=== PATIENT | male | born 1975 | race Two or more races ===

== ENCOUNTER → 2021-04-19 13:58 | Outpatient (CLI) | payer MEDICAID, SELFPAY ==
[2021-04-19 14:39] LABS: Basophils % 0.5 % (0.1-2.0); Eosinophils % 0.7 % (0.1-12.0); Hematocrit 46.9 % (42.0-52.0); Hemoglobin 14.8 g/dL (14.1-18.0); Mean Corpuscular HGB Conc 31.6 g/dL (31.8-35.4); Mean Corpuscular Hemoglobin 32.6 pg (27.0-31.2); Monocytes # 0.3 K/mm3 (0.1-1.0); Monocytes % 5.8 % (1.7-9.3); Neutrophils # 3.3 K/mm3 (1.8-7.8); Platelet Count 272 K/mm3 (142-424); Red Blood Count 4.55 M/mm3 (4.60-6.20); Red Cell Distribution Width 13.4 % (11.5-17.5); White Blood Count 4.5 K/mm3 (4.8-10.8)
[2021-04-19 15:04] LABS: Erythrocyte Sedimentation Rate 8 mm/hr (0-15)
[2021-04-19 15:15] LABS: Chloride 101 mmol/L (98-107); Sodium 140 mmol/L (136-145)
[2021-04-19 15:16] LABS: Potassium 4.3 mmoL/L (3.5-5.1)
[2021-04-19 15:18] LABS: Alanine Aminotransferase 27 U/L (12-78); Albumin Level 4.4 g/dl (3.5-5.0); Albumin/Globulin Ratio 1.5 (1.1-1.8); Alkaline Phosphatase 93 U/L (38-126); Anion Gap 14.3 mEq/L (5-15); Aspartate Amino Transferase 52 U/L (17-59); Blood Urea Nitrogen 21 mg/dl (9-20); Carbon Dioxide 29 mmol/L (22.0-30.0); Estimated Glomerular Filt Rate 91 ml/min (>60); GFR (African American) 110 ML/MIN (>60); Globulin 2.9 g/dL (1.3-3.2); Glucose 97 mg/dl (74-100); Total Protein,Serum 7.3 g/dl (6.3-8.2)
[2021-04-19 15:19] LABS: Magnesium 2.3 mg/dl (1.6-2.3)
[2021-04-19 15:36] LABS: 25-OH Vitamin D, Total 67.9 ng/mL (30-100)
[2021-04-19 15:50] LABS: Thyroid Stimulating Hormone 1.06 uIU/mL (0.465-4.68)
[2021-04-19 16:07] LABS: Vitamin B12 673 pg/mL (239-931)
[2021-04-19 16:39] LABS: Free T4 (Free Thyroxine) 1.18 ng/dl (0.78-2.19)
== END ==
PROVIDERS: Visit Provider Emergency Medicine
DX: R41.3 Other amnesia (principal); E55.9 Vitamin D deficiency, unspecified
CPT/HCPCS: 80053; 82306; 82607; 83735; 84439; 84443; 85025; 85651

== ENCOUNTER → 2021-05-03 14:23 | Outpatient (CLI) | payer MEDICAID, SELFPAY ==
--- NOTE | 2021-05-03 14:23 | MR_ITS ---
PROCEDURE: MR HEAD/BRAIN WO CON CLINICAL INDICATION: memory changes , Cognitive decline, frequent falling, abnormal gait COMPARISON: No exams were available for comparison TECHNIQUE: Routine multiplanar multi echo sequences are performed without gadolinium enhancement. FINDINGS: No midline shift, mass effect, intracranial hemorrhage, or hydrocephalus is evident. There is no evidence of restricted diffusion. No evidence of acute infarction. The cerebellopontine angles, cerebellum, and brainstem have an unremarkable appearance. No vermian atrophy apparent. There is mild generalized prominence of the ventricles which may be due to hydrocephalus ex vacuo from the cerebral atrophy as opposed to an obstructive pattern. No transependymal flow of CSF. The left lateral ventricle is slightly larger than the right which is nonspecific. The craniocervical junction has an unremarkable appearance. No abnormal white matter signal intensity. No mastoid effusion or sinus air-fluid level. IMPRESSION: No acute intracranial findings. Generalized atrophy with mild ventriculomegaly. Dictated by: Efren Garcia MD 05/03/2021 15:55 Efren Garcia MD in [facility] 05/03/2021 15:55
--- NOTE | 2021-05-03 14:23 | MR_ITS ---
PROCEDURE: MR CERVICAL SPINE WO CON CLINICAL INDICATION: neck pain Abnormal gait COMPARISON: MR MR HEAD/BRAIN WO CON from 05/03/2021 TECHNIQUE: Standard multiplanar multiecho sequences are performed without contrast. 3-D MIP and myelographic images are also rendered and reviewed FINDINGS: There is straightening of the cervical lordosis. No evidence of cerebellar ectopia. Mildly prominent cisterna magna noted. C2-C3: Unremarkable. C3-C4: There is mild retrolisthesis of C3 of 3 mm. Degenerative disc disease with bulging disc and a small central disc protrusion versus prominent posterior longitudinal ligament with canal stenosis of 10 mm. No contour deformity of the cord. There is moderate to severe left-sided foraminal narrowing and moderate right foraminal narrowing from facet hypertrophy. C4-C5: Bulging disc slightly eccentric toward the right with facet hypertrophic change left greater than right with moderate left-sided foraminal narrowing. Mild right foraminal narrowing. C5-C6: Mild degenerative disc disease. C6-C7: Mild degenerative disc disease with minimal endplate hypertrophic change toward the right. Facet hypertrophy with moderate right and mild to moderate left foraminal narrowing. C7-T1 and T1-T2 have an unremarkable appearance. The spinal cord has an unremarkable appearance. No extruded herniated disc IMPRESSION: 1. Multilevel cervical spondylosis. Please see above for detailed description at each level. 2. C3-C4: There is mild retrolisthesis of C3 of 3 mm. Degenerative disc disease with bulging disc and a small central disc protrusion versus prominent posterior longitudinal ligament with canal stenosis of 10 mm. No contour deformity of the cord. There is moderate to severe left-sided foraminal narrowing and moderate right foraminal narrowing from facet hypertrophy. 3. C4-C5: Bulging disc slightly eccentric toward the right with facet hypertrophic change left greater than right with moderate left-sided foraminal narrowing. Mild right foraminal narrowing. 4. C6-C7: Mild degenerative disc disease with minimal endplate hypertrophic change toward the right. Facet hypertrophy with moderate right and mild to moderate left foraminal narrowing. 5. No extruded herniated disc apparent. Dictated by: Efren Garcia MD 05/05/2021 12:07 Efren Garcia MD in [facility] 05/05/2021 12:07
== END ==
PROVIDERS: PCP Emergency Medicine; Visit Provider Emergency Medicine
DX: R41.3 Other amnesia (principal); M54.2 Cervicalgia
CPT/HCPCS: 70551; 72141; 76376